=== PATIENT | male | born 1930 | race Caucasian/White ===

== ENCOUNTER 2017-03-02 06:20 | Day surgery (SDC) | payer MEDICARE ==
[2017-03-01 14:06] VITALS: BMI 24.0
[~2017-03-02 06:20] MED LIST: Cyclopentolate 1% Opth Drop 2 ML BOT FS SCH; Fluorouracil 100 MG, Enoxaparin Sodium 25 MG, EPINEPHrine 0.3 MG in Ophthalmic Irrigati... IVPB SCH; Phenylephrine 2.5% Ophth Soln 5 ML BOT FS SCH
[2017-03-02] MEDS ORDERED: Phenylephrine 2.5% Ophth Soln 5 ML BOT ONE (07:05)
[2017-03-02] MEDS ORDERED: Cyclopentolate 1% Opth Drop 2 ML BOT ONE (07:05)
[2017-03-02] MEDS ORDERED: Midazolam HCl 2 mg/2 ml Vial ONE (08:07)
[2017-03-02] MEDS ORDERED: Fentanyl 100 MCG/2 ML VIAL ONE (08:07)
[2017-03-02] MEDS ORDERED: Diprivan 20 ML ONE (08:08)
[2017-03-02] MEDS ORDERED: Propofol 200 MG/20 ML VIAL ONE (11:15)
[2017-03-02] MEDS ORDERED: Lidocaine 1% PF 5 ML VIAL ONE (11:15)
--- NOTE | 2017-03-02 13:26 | OP ---
DATE OF PROCEDURE: 03/02/2017 PREOPERATIVE DIAGNOSIS: Tractional retinal detachment, left eye. POSTOPERATIVE DIAGNOSIS: Tractional retinal detachment, left eye. PROCEDURE PERFORMED: Pars plana vitrectomy and complex retinal detachment repair, left eye. SURGEON: Dr. Angeles. ANESTHESIA: Local with monitored anesthesia care. PROCEDURE IN DETAIL: The patient was identified in the preoperative holding area. Appropriate infor med consent for the planned surgical procedure on the left eye had been obtained. The patient was tr ansported to the operative suite where appropriate cardiopulmonary monitoring was established. Local anesthesia was obtained using retrobulbar and modified Van Lint lid block using 50/50 mixture of 4% lidocaine and 0.75% bupivacaine. The patient was prepped and draped in usual sterile manner for opht halmic surgery on the left eye. Lid speculum was placed in the left eye. The 25-gauge trocars were placed through the conjunctiva and sclera supratemporally, inferotemporally, and supranasally. Infus ion line was placed inferotemporally. Light pipe and vitreous cutter were inserted into the eye. Co re of vitrectomy was performed. Careful inspection, the retinal tear was noted at the 12:30 o'clock position at the vitreous base. Subretinal traction band was noted superiorly. The star fold was not ed nasally to the nerve. Retinotomy was created over the subretinal tractional band and the band was removed from behind the retina. The star fold was elevated using a membrane pick and peeled from th e retinal surface. Drain retinotomy was created inferior to the nerve. Complete air fluid exchange was performed with 10 minutes being allowed for fluid to drain posteriorly. A 360 laser was placed u sing Endolaser delivery device. A 1000 cent[place] silicone oil was infused into the eye and the troc ars were closed using 7-0 Vicryl suture. Retrobulbar Kenalog and subconjunctival Ancef were placed. Antibiotic ointment was placed, and the eye was patched and shielded. The patient was taken to the postoperative recovery unit in good condition having suffered no immediate perioperative complication s. DISCHARGE INSTRUCTIONS: The patient was instructed to keep patch and shield on, avoid lifting or tracey ding, and follow up in the morning with Dr. Angeles.
== END 2017-03-02 11:03 | disposition home or self-care (01) ==
LOC: SDC 06:20
PROVIDERS: ATTEND Ophthalmology Retina Specialist
PROC: 08B53ZZ Excision of Left Vitreous, Percutaneous Approach (ICD-10-PCS; principal; 2017-03-02)
PROC: 08NF3ZZ Release Left Retina, Percutaneous Approach (ICD-10-PCS; 2017-03-02)
PROC: 08QF3ZZ Repair Left Retina, Percutaneous Approach (ICD-10-PCS; 2017-03-02)
DX: H33.42 Traction detachment of retina, left eye (principal); Z98.41 Cataract extraction status, right eye; Z98.42 Cataract extraction status, left eye; Z96.1 Presence of intraocular lens; Z90.49 Acquired absence of other specified parts of digestive tract; Z98.890 Other specified postprocedural states
CPT/HCPCS: 67113; C1814; J0171; J1650; J2001; J2250; J2704; J3010; J9190

== ENCOUNTER 2017-06-01 05:47 | Day surgery (SDC) | payer MEDICARE ==
[2017-05-31 14:00] VITALS: BMI 24.4
[~2017-06-01 05:47] MED LIST changes: +EPINEPHrine 0.3 MG in Ophthalmic Irrigation Solution 500 ML FS SCH; -Fluorouracil 100 MG, Enoxaparin Sodium 25 MG, EPINEPHrine 0.3 MG in Ophthalmic Irrigati... IVPB SCH
[2017-06-01] MEDS ORDERED: PROPOFOL 20 ML ONE (06:10)
[2017-06-01] MEDS ORDERED: Midazolam HCl 2 mg/2 ml Vial ONE (06:10)
[2017-06-01] MEDS ORDERED: Fentanyl 100 MCG/2 ML VIAL ONE (06:10)
[2017-06-01] MEDS ORDERED: Lidocaine 2% 10 ML INJ ONE (06:10)
[2017-06-01] MEDS ORDERED: Phenylephrine 2.5% Ophth Soln 5 ML BOT ONE (06:22)
[2017-06-01] MEDS ORDERED: Cyclopentolate 1% Opth Drop 2 ML BOT ONE (06:22)
--- NOTE | 2017-06-01 08:11 | OP ---
DATE OF PROCEDURE: 06/01/2017 PREOPERATIVE DIAGNOSIS: Vitreous opacification, left eye. POSTOPERATIVE DIAGNOSIS: Vitreous opacification, left eye. PROCEDURE: Pars plana vitrectomy, left eye. SURGEON: Dr. Oz Angeles ANESTHESIA: Local with monitored anesthesia care. PROCEDURE IN DETAIL: The patient was identified in the preoperative holding area. appropriate conse nt planned surgical procedure on the left eye had been obtained. The patient was transported to the operative suite. Appropriate cardiopulmonary monitoring was established. Local anesthesia obtained using retrobulbar block using 4% lidocaine and 0.75% bupivacaine. The patient was prepped and draped in the usual sterile manner for ophthalmic surgery on the left eye. Lid speculum was placed in the left eye. The 25-gauge trocars was placed in the conjunctiva and sclera supratemporally, inferotempo rally, and supranasally. Infusion line was placed inferotemporally. Light pipe and vitreous cutter inserted into the eye. Core vitrectomy was performed. Viscous fluid was removed using a VFC 20 gaug e sclerotomy supratemporally. Sclerotomy was suture closed with 7-0 Vicryl suture. Conjunctiva was closed with 6-0 plain gut suture. The retina appeared attached by direct inspection at the end of th e case. Retrobulbar Kenalog and subconjunctival Ancef were placed. Atropine and antibiotic ointment were placed, and the eye was patched and shielded. Patient taken to the postoperative recovery unit in good condition having suffered no immediate perioperative complications. DISCHARGE INSTRUCTIONS: The patient was instructed to keep patch and shield on, avoid lifting or tracey ding, and follow up in the morning with Dr. Angeles.
[2017-06-01] MEDS ORDERED: PROPOFOL 200 MG/20 ML VIAL ONE (16:53)
[2017-06-01] MEDS ORDERED: Lidocaine 1% PF 5 ML VIAL ONE (16:53)
== END 2017-06-01 08:40 | disposition home or self-care (01) ==
LOC: SDC 05:47
PROVIDERS: ATTEND Ophthalmology Retina Specialist
PROC: 08953ZZ Drainage of Left Vitreous, Percutaneous Approach (ICD-10-PCS; principal; 2017-06-01)
DX: H43.392 Other vitreous opacities, left eye (principal); Z98.890 Other specified postprocedural states
CPT/HCPCS: J0171; J2001; J2250; J2704; J3010